=== PATIENT | female | born 1955 | race Caucasian/White ===

== ENCOUNTER 2018-01-09 11:21 | Inpatient (IN) | payer OTHER ==
[~2018-01-09] VITALS: Ht 160 cm; Wt 62.4 kg
--- NOTE | ~2018-01-09 | EKG ---
[address] [place] [address] ELECTROCARDIOGRAM REPORT Name: RICARDO BERNALSWATI EWING Room #: 406-P ADM IN M.R.#: [id number] Admission: 01/09/18 Attend Phys: Malcolm Watts MD Discharge: Date of : 53 Report #: [id number] THIS REPORT FOR: //name// [facility] Test Date: 2018-01-10 Test Time: 11:02:58 Pat Name: SWATI BERNAL Department: Room: 406 P Gender: F Coremaking Supervisor: Ruslan RODRÍGUEZ : 1955 Requested By: Malcolm Watts Order Number: [id number] MD: Yovani Mandujano Measurements Intervals [place] Rate: 114 P: 52 MN: 140 QRS: -13 QRSD: 91 T: 41 QT: 337 QTc: 465 Interpretive Statements Sinus tachycardia Borderline low voltage, extremity leads Baseline wander in lead(s) V4 Compared to ECG 01/09/2018 12:18:58 Poor R-wave progression no longer present Electronically Signed On 01-10-2018 14:04:06 CDT by Yovani Mandujano [email or web address] <ELECTRONICALLY SIGNED> By: Yovani Mandujano MD 01/10/18 1404 1102 1102 Yovani Mandujano MD /EPI
--- NOTE | ~2018-01-09 | 2DMMODE ---
[facility] [address] [place] [address] 2 D/M-MODE ECHOCARDIOGRAM Name: SWATI ALLAN KAYLIN Room #: 406-P ADM IN M.R.#: [id number] Admission: 01/09/18 Attend Phys: Malcolm Watts MD Discharge: Date of : 53 Date of Service: 01/10/18 1206 Report #: [id number] THIS REPORT FOR: //name// APPROVED REPORT Study performed: 01/10/2018 11:06:10 EXAM: Comprehensive 2D, Doppler, and color-flow Echocardiogram Patient Location: Bedside Room #: 406 Status: routine BSA: 1.39 HR: 110 bpm BP: 126/58 mmHg Rhythm: Tachycardia Other Information Study Quality: Good Indications Tachycardia. Short of breath. renal failure. Hx: HTN, tob 2D Dimensions RVDd: 28.55 mm LVEF(%): 51.56 (>50%) IVSd: 9.65 (7-11mm) LVDd: 41.51 mm PWd: 9.18 (7-11mm) LVDs: 30.70 (25-40mm) Aortic Root: 33.27 mm Myrick's LVEF: 51.56 % Volumes Left Atrial Volume (Systole) Single Plane 4CH: 21.69 mL Single Plane 2CH: 21.13 mL LA ESV Index: 17.00 mL/m2 Aortic Valve AoV Peak Juma.: 1.26 m/s AO Peak Gr.: 6.35 mmHg LVOT Max P.27 mmHg LVOT Max V: 1.15 m/s Mitral Valve E/A Ratio: 0.6 MV Decel. Time: 146.56 ms MV E Max Juma.: 0.79 m/s [facility] [address] [place] [address] 2 D/M-MODE ECHOCARDIOGRAM Name: LACEYGAETANO BERNALSWATI EWING Room #: 406-[facility] IN ..#: [id number] Admission: 01/09/18 Attend Phys: Malcolm Watts MD Discharge: Date of : 53 Date of Service: 01/10/18 1206 Report #: [id number] MV A Juma.: 1.26 m/s MV PHT: 42.50 ms IVRT: 76.12 ms Pulmonary Valve PV Peak Juma.: 1.04 m/s PV Peak Gr.: 4.31 mmHg Tricuspid Valve TR Peak Juma.: 2.38 m/s RAP Estimate: 5.00 mmHg TR Peak Gr.: 22.60 mmHg PA Pressure: 28.00 mmHg Left Ventricle The left ventricle is normal size. There is normal left ventricular wall thickness. Left ventricular systolic function is normal. LVEF is 55%. Mild diastolic dysfunction is present (impaired relaxation pattern). Right Ventricle The right ventricle is normal size. The right ventricular systolic function is normal. Atria The left atrium size is normal. The right atrium size is normal. Aortic Valve Aortic valve is mildly calcified. No aortic regurgitation is present. There is no aortic valvular stenosis. Mitral Valve Mitral valve leaflets are mildly calcified. Mild mitral regurgitation. No evidence of mitral valve stenosis. Tricuspid Valve The tricuspid valve is normal in structure. Trace tricuspid regurgitation. Estimated PAP is 25-30mmHg. Pulmonic Valve Pulmonic valve is not well visualized. Great Vessels The aortic root is normal in size. IVC is normal in size and collapses >50% with inspiration. Pericardium [facility] [address] [place] [address] 2 D/M-MODE ECHOCARDIOGRAM Name: RICARDO BERNALSWATI EWING Room #: 406-[facility] IN M.R.#: [id number] Admission: 01/09/18 Attend Phys: Malcolm Watts MD Discharge: Date of : 53 Date of Service: 01/10/18 1206 Report #: [id number] There is no pericardial effusion. <Conclusion> The left ventricle is normal size. LVEF is 55%. Aortic valve is mildly calcified. Mitral valve leaflets are mildly calcified. Mild mitral regurgitation. The tricuspid valve is normal in structure. Trace tricuspid regurgitation. Estimated PAP is 25-30mmHg. Pulmonic valve is not well visualized. There is no pericardial effusion. <ELECTRONICALLY SIGNED> By: Azar Mireles MD 01/10/18 1206 1206 Azar Mireles MD /INF
--- NOTE | ~2018-01-09 | EKG ---
[address] [place] [address] ELECTROCARDIOGRAM REPORT Name: RICARDO BERNALSWATI EWING Room #: 406-P ADM IN M.R.#: [id number] Admission: 01/09/18 Attend Phys: Malcolm Watts MD Discharge: Date of : 53 Report #: [id number] THIS REPORT FOR: //name// [facility] ED Test Date: 2018-01-09 Test Time: 12:18:58 Pat Name: SWATI BERNAL Department: Room: 406 Gender: F Clinical Admissions Manager: lissa : 1955 Requested By: [place] Order Number: [id number] MD: Adán Villatoro Measurements Intervals [place] Rate: 109 P: 64 DE: 157 QRS: 16 QRSD: 94 T: 60 QT: 351 QTc: 473 Interpretive Statements Sinus tachycardia Probable left atrial enlargement Poor R wave progression No previous ECG available for comparison Electronically Signed On 01-10-2018 8:19:31 CDT by Adán Villatoro [email or web address] <ELECTRONICALLY SIGNED> By: Adán Villatoro MD, [facility] 01/10/18 0819 1218 17 Adán Villatoro MD, FACC /EPI
--- NOTE | ~2018-01-09 | HC ---
[facility] [place] [address] CONSULTATION Name: LACEYGAETANO BERNALSWATI Room #: 241-P ADM IN M.R.#: [id number] Admission: 01/09/18 Attend Phys: Malcolm Watts MD Discharge: Date of : 53 Report #: [id number] THIS REPORT FOR: //name// CC: Nkechi Watts DATE OF SERVICE: 01/14/2018 REFERRING PROVIDER: Carlo Myrick MD REASON FOR CONSULTATION: Severe sepsis and abdominal pain. HISTORY OF PRESENT ILLNESS: The patient is a 62-year-old female who presented 5 days ago with complaints of malaise, diminished appetite and significant mucositis of the oropharynx and digestive tract. The patient was on methotrexate for rheumatoid arthritis and over the past 48 hours has decompensated with severe hypotension and lactic acidosis. The patient has had pancytopenia since admission felt secondary to methotrexate and earlier today was complaining of significant right-sided abdominal pain. The patient was emergently intubated due to respiratory failure and severe sepsis and workup was continued in the form of a CT scan of the chest, abdomen and pelvis today. Over the past few days, her workup in the form of a V/Q scan as well as a CT scan of the abdomen and pelvis were obtained and reviewed and this showed mismatch defect as well as mildly distended gallbladder with no other pathology. Urine cultures have grown Klebsiella and E. coli. As the patient has worsening lactic acidosis with pancytopenia and abdominal pain with severe sepsis, I am asked to evaluate for possible abdominal source. PAST MEDICAL HISTORY: Rheumatoid arthritis, on methotrexate; history of fibromyalgia and restless leg syndrome as well as hypertension. OUTPATIENT MEDICATIONS: Include Cymbalta, Mobic, hydrocodone, Flexeril, Xanax, Valtrex, temazepam, Maxzide, methotrexate, Topamax and albuterol. ALLERGIES: No known drug allergies. FAMILY HISTORY: Reviewed and noncontributory. SOCIAL HISTORY: The patient does not utilize alcohol or illicit drugs. She had been smoking tobacco up until admission. REVIEW OF SYSTEMS: Unobtainable secondary to the patient's intubated and obtunded status. PHYSICAL EXAMINATION: VITAL SIGNS: Temperature 96.2, pulse 137, respirations 37, blood pressure 81/[address] [address] CONSULTATION Name: SWATI ALLAN Room #: 241-P [facility] IN ..#: [id number] Admission: 01/09/18 Attend Phys: Malcolm Watts MD Discharge: Date of : 53 Report #: [id number] on Levophed. GENERAL: Chronically ill-appearing, debilitated elderly woman who is intubated and sedated. HEENT: Normocephalic, atraumatic. She is edentulous with pale sclerae and has a severely dry oropharynx with multiple ulcerated areas. NECK: Supple, without lymphadenopathy. HEART: Tachycardic, but regular rhythm. LUNGS: Coarse breath sounds bilaterally with decreased air entry at the bases. ABDOMEN: Soft and nondistended. I cannot elicit any sign or symptom of tenderness as her belly has no rigidity, no rebound, no guarding seen at this time. GENITOURINARY: Normal external female genitalia with Ibrahim catheter in place. EXTREMITIES: No edema. Her fingers and toes are becoming cyanotic. NEUROLOGIC: She is intubated and sedated, although she does grimace to pain when stimulated. PSYCHIATRIC: Unobtainable secondary to intubated and sedated status. SKIN AND INTEGUMENT: Numerous abrasions and ulcerations all over her arms and legs. LABORATORY AND X-RAY DATA: CBC shows white blood cell count of 0.2 thousand, hemoglobin 8.0, platelets 8. Creatinine is 1.4. Total bilirubin normal at 0.8. Transaminases are elevated. Albumin is critically low at 1.3. Procalcitonin is elevated at 4.69. Urine culture is positive for E. coli and Klebsiella. Blood gas shows a lactate of 10.23. CT scan of the chest, abdomen and pelvis just obtained shows distention of the gallbladder without gallbladder wall thickening or cholecystitis changes. Her cecum shows mild pericolonic soft tissue stranding and thickening consistent with possible colitis and certainly typhlitis would not be out of question in this patient. She does have marked consolidated bilateral lower lobe infiltrates. ASSESSMENT AND PLAN: This is a 62-year-old critically ill female who appears to have severe bilateral lower lobe pneumonias as well as urosepsis and even possibly typhlitis at this time. The patient is currently intubated and sedated on sepsis protocol, receiving acyclovir, micafungin, Zosyn and vancomycin as well as requiring increasing pressor support. The patient has a worsening lactic acidosis in light of maximal supportive therapy and has had the onset of progressive cyanosis to her digits of the upper and lower extremities. She did not have any evidence of perforation or necrotic bowel at this time, as her abdomen is soft, although I do think she likely has a component of neutropenic colitis of the cecum. At this point, the patient's condition is grave and likelihood of survival is quite low. I did spend greater than 60 minutes in evaluation of this patient, gathering her history, performing a thorough physical exam as well as reviewing all of her workup thus far and spent considerable time discussing with the patient's family in the waiting room today. At this point, they would like to consider ongoing [facility] [address] [place] [address] CONSULTATION Name: SWATI ALLAN Room #: 241-P ADM IN M.R.#: [id number] Admission: 01/09/18 Attend Phys: Malcolm Watts MD Discharge: Date of : 53 Report #: [id number] maximal medical therapy and as such, I will defer that to the critical care service. I see no indication for emergent surgical intervention at this time that would alter the outcome of her overall course. However, I will follow along and leave any further recommendations in the patient's chart as appropriate. As always, I sincerely appreciate this consult. <ELECTRONICALLY SIGNED> By: Benji Vazquez MD, FACS 01/15/18 0854 12 2155 Benji Vazquez MD, FACS /nt
--- NOTE | ~2018-01-09 | P ---
[facility] [place] [address] PROCEDURE REPORT Name: RICARDO BERNALSWATI Room #: 241-P [facility] IN M.R.#: [id number] Admission: 01/09/18 Attend Phys: Malcolm Watts MD Discharge: Date of : 53 Report #: [id number] THIS REPORT FOR: //name// CC: Nkechi Watts DATE OF SERVICE: 01/14/2018 PROCEDURE: Emergent intubation. INDICATION: Severe sepsis and respiratory failure. PROCEDURE NOTATION: The patient was placed in the supine position after respiratory therapy and nursing were prepared. The patient was placed in a sniff position, but not overly hyperextended due to underlying history of rheumatoid arthritis. The patient received 20 mg of etomidate for sedation and muscle relaxation. The patient was adequately relaxed. Using a Юлия 4 blade, a grade 1 view of the vocal cords was noted. There was significant mucositis in the oropharynx, but no significant bleeding. A 7.5 endotracheal tube was easily advanced through the vocal cords and directly visualized doing so to 20 cm at the gums. Positive Easy Cap color change and bilateral breath sounds were noted. The patient was bagged throughout the procedure until intubation and then post-intubation and then was placed on mechanical ventilatory support. Endotracheal tube was secured in position. The patient tolerated well with no noted difficulties and no hypoxemia. By: 1205 1236 Carlo Myrick MD /nt
--- NOTE | ~2018-01-09 | EKG ---
[address] [place] [address] ELECTROCARDIOGRAM REPORT Name: RICARDO BERNALSWATI EWING Room #: 241-P ADM IN M.R.#: [id number] Admission: 01/09/18 Attend Phys: Malcolm Watts MD Discharge: Date of : 53 Report #: [id number] THIS REPORT FOR: //name// [facility] Test Date: 2018-01-12 Test Time: 11:53:37 Pat Name: SWATI BERNAL Department: Room: 241 P Gender: F Garment Cutter: AYE : 1955 Requested By: Yovani Mandujano Order Number: [id number] MD: Yovani Mandujano Measurements Intervals [place] Rate: 123 P: 57 GA: 141 QRS: -1 QRSD: 90 T: 60 QT: 311 QTc: 445 Interpretive Statements Sinus tachycardia Probable left atrial enlargement Low voltage, precordial leads Electronically Signed On 01-12-2018 19:57:49 CDT by Yovani Mandujano [email or web address] <ELECTRONICALLY SIGNED> By: Yovani Mandujano MD 01/12/181956 1153 1153 Yovani Mandujano MD /LILIANE
--- NOTE | ~2018-01-09 | HC ---
[facility] [place] [address] CONSULTATION Name: RICARDO BERNALSWATI Room #: 241-P ADM IN M.R.#: [id number] Admission: 01/09/18 Attend Phys: Malcolm Watts MD Discharge: Date of : 53 Report #: [id number] THIS REPORT FOR: //name// CC: Nkechi Watts TYPE OF REPORT: Infectious diseases consultation. REASON FOR CONSULTATION: I was asked to evaluate concerning neutropenia, mucositis, urinary retention and failure to thrive. HISTORY OF PRESENT ILLNESS: The patient was a 62-year old with rheumatoid arthritis, has been on immunosuppressant for many years. She has been on biologic agents up until the last several years and due to financial issues, she was taken off of this and now is on methotrexate and prednisone. Most recently, has had issues with more shortness of breath along with mucositis with odynophagia. She has tried various topical agents for thrush without benefit. Continues on methotrexate. Had increased her corticosteroids recently. Now is off of her corticosteroids. She states she has lost about 40 pounds in the last several weeks. No fever, chills or sweats. No cough or sputum production. Has generalized weakness, myalgias and arthralgias. No nausea, vomiting or diarrhea. No dysuria, although she has had some difficulties urinating. Denies any ulcers to her skin. She has had multiple falls and bruising to her face and extremities. No travel. No tuberculosis exposure. She lives with her family who has otherwise been well. No HIV risks. PAST MEDICAL HISTORY: Rheumatoid arthritis, fibromyalgia, COPD, restless leg syndrome and hypertension. FAMILY HISTORY: Noncontributory. SOCIAL HISTORY: She is a smoker of cigarettes, minimal alcohol intake. REVIEW OF SYSTEMS: No cardiac issues. No other neurologic issues. ALLERGIES: None. MEDICATIONS: Prednisone, Cymbalta, Mobic, [place], Flexeril, Xanax, Valtrex, Estrace, Restoril, Maxzide, methotrexate, Topamax and ProAir. PHYSICAL EXAMINATION: VITAL SIGNS: Afebrile and hemodynamically stable. GENERAL: Alert and cooperative. Multiple bruises to her face, thorax and extremities. Several areas of ecchymosis from thin skin. HEENT: Remarkable for mucositis involving the soft palate. Edentulous. NECK: Supple. LUNGS: Clear. [facility] [address] [place] [address] CONSULTATION Name: SWATI ALLAN Room #: 241-P [facility] IN .R.#: [id number] Admission: 01/09/18 Attend Phys: Malcolm Watts MD Discharge: Date of : 53 Report #: [id number] HEART: Regular, without murmur. ABDOMEN: Soft and nontender. No hepatosplenomegaly or mass. She had alopecia involving her pubic hair. MUSCULOSKELETAL: Joints without definite synovitis. NEUROLOGICAL: Some weakness in her lower extremities bilaterally. LABORATORY STUDIES: Sodium 138, potassium 3.4, bicarbonate 22 and creatinine initially 4 and now 2.6. Liver function test normal. Lactate 0.6. Hemoglobin 9.3; platelet count 148,000 and white count 0.7 with 6% neutrophils, 62% lymphs and 30% eosinophils. Urinalysis was unremarkable. Blood cultures are negative to date. RADIOLOGICAL DATA: Chest x-ray, left lower lobe atelectasis. CT scan of the chest and abdomen and pelvis showed COPD with bull eye, no acute change, distended gallbladder and distended bladder. IMPRESSION: A 62-year old with rheumatoid arthritis, on immunosuppression including prednisone and methotrexate, presents now with odynophagia with mucositis, weight loss, acute renal failure, eosinophilia and anemia. No thrombocytopenia. No splenomegaly. No evidence of Felty's syndrome. I am suspecting that most of her issues are related to her methotrexate and prednisone. Likely cause of her anemia and neutropenia. Acute renal failure yet unclear because of prerenal or post-renal disease, noting that she had urinary retention. I am suspecting her weight loss is more related to her mucositis and poor nutritional intake. No evidence on imaging studies for lymphoma. PLAN: We would recommend obtaining culture for HSV PCR involving the mouth. Continue treatment with Valtrex and fluconazole. Hold methotrexate and give stress dose of prednisone. If no improvement, we would perform upper endoscopy to further assess her esophagus. There was no evidence of esophageal thickening on her CAT scan. We will obtain urine culture and blood cultures. With neutropenia, she may not have much reaction in the urine sediment. However, no bacteria were seen on Gram stain. Continue with nutritional support. Serial CBCs. May need neutrophil growth factor if she does not improve here in the next day or so. EGD if odynophagia does not improve. Await culture results. Continue with Valtrex and fluconazole. <ELECTRONICALLY SIGNED> By: Nic Pittman MD 01/13/18 0828 [id number] Nic Pittman MD /nt
--- NOTE | ~2018-01-09 | S ---
[facility] [place] [address] SURGICAL PATH RPT PROCEDURE Name: SWATI ALLAN Room #: 241-P ADM IN M.R.#: [id number] Admission: 01/09/18 Date of : 53 Discharge: Report #: [id number] Path Case #: [id number] PATHOLOGY REPORT COLLECTION DATE: 01/11/2018 RECEIVED DATE: 01/13/2018 SUBMITTING PHYS: Malcolm Watts M.D. OTHER PHYS: Dr. Nkechi Lynch SPECIMEN(S) RECEIVED: A.Peripheral smear * * * * * * * * * * * * FINAL DIAGNOSIS: Peripheral blood smear: - Pancytopenia including mgbrslav-fz-opvncb macrocytic anemia, severe leukopenia and mild thrombocytopenia. (see comment). COMMENT: Overall the peripheral blood has pancytopenia including mlgojxlw-hs-iaqrxe macrocytic anemia, severe leukopenia and mild thrombocytopenia. The etiology of the findings is unclear based entirely on slide review. Potential causes of pancytopenia include infections, drug reactions and primary bone marrow disorders. Correlation with clinical history and additional laboratory data, to include the bone marrow biopsy ([id number]), is required. (CLW:sofie; 01/13/2018) PATHOLOGIST: Shannon Suggs M.D. REPORT ELECTRONICALLY SIGNED BY: Shannon Suggs M.D. DATE/TIME: 01/13/2018 18:26 * * * * * * * * * * * * MICROSCOPIC DESCRIPTION: CBC Data (01/11/18): WBC 400 /uL, RBC 2.23, hemoglobin 8.3 g/dL, hematocrit 24.2%, MCV 108.7 fL, MCH 37.5 pg, MCHC 34.5 g/dL, RDW 20.2%. Platelet count 117,000 /dL. Manual white blood cell differential: segs 2%, lymphs 86%, eos 12%. Peripheral Blood Smear: Cytomorphological examination of the Amaya's stained peripheral blood smear confirms the provided data. Red blood cells show gbocxmhe-hl-kgjtqn macrocytic anemia with yvzb-hc-xcqdihfz anisocytosis. While a rare dacryocyte (pointed RBC, teardrop cell) is noted, there is no significant poikilocytosis present. White blood cells are markedly decreased in number. They are predominantly lymphocytes that are small, round and mature-appearing with condensed chromatin and scant cytoplasm with admixed large granular [address] [address] SURGICAL PATH RPT PROCEDURE Name: SWATI ALLAN Room #: 241-P ADM IN [facility].#: [id number] Admission: 01/09/18 Date of : 53 Discharge: Report #: [id number] Path Case #: [id number] lymphocytes. Rare granulocytes are predominantly neutrophils and eosinophils. Platelets are mildly decreased in number and mainly normal in morphology with rare larger platelets noted. GROSS PATHOLOGY: Received are four peripheral blood smears (two Amaya stained and two unstained), labeled, Swati Allan. CLINICAL HISTORY: A 62-year-old woman with pancytopenia. Morphologic review of the peripheral blood smear is requested by the patient's physician. INITIAL CPT CODE(S): A; [place] Professional services performed by [facility] at [facility] [address], [place] [address] Technical services performed by [facility] at [address] [place] [address], [address], [place] [address]. [facility] [address] [place] [address] PHONE: [phone] DIRECTOR: Mejia Farah M.D. * * * END OF REPORT * * *
--- NOTE | ~2018-01-09 | HC ---
[facility] [place] [address] CONSULTATION Name: RICARDO BERNALSWATI Room #: 406-P ADM IN M.R.#: [id number] Admission: 01/09/18 Attend Phys: Malcolm Watts MD Discharge: Date of : 53 Report #: [id number] THIS REPORT FOR: //name// CC: Nkechi Watts DATE OF SERVICE: 01/10/2018 ATTENDING PHYSICIAN: Dr. Watts. REASON FOR CONSULTATION: Acute kidney injury. HISTORY OF PRESENT ILLNESS: A 62-year-old patient has longstanding rheumatoid arthritis and fibromyalgia on multiple medications including meloxicam and Maxzide, developed shortness of breath and doubled her standard 10 mg a day prednisone. She developed a very severe Adrienne mouth and esophageal infection, which led to extremely poor p.o. intake and she after a couple of weeks on 20 mg a day of prednisone instead of her usual dose of 10, stopped the prednisone altogether and this progressed to more weakness, low blood pressures and eventually admission to the hospital with a creatinine level that was up to 4. We do not have a baseline creatinine, but she says that she did not know of any prior kidney issues. Now after overnight IV fluids, she is down to 2.6. PAST MEDICAL HISTORY: She has this diagnosis of rheumatoid arthritis with generalized arthralgia, stiffness, pain; however, completely nondeforming. She has COPD. She is a heavy smoker, also carries a diagnosis of restless legs. HOME MEDICATIONS: Include Cymbalta 60 mg a day, normally prednisone 10 mg daily, meloxicam 15 mg daily, hydrocodone, Flexeril, Xanax, Valtrex 500 mg daily, estradiol 2 mg daily, Restoril 30 mg at bedtime p.r.n., Maxzide 1 daily, methotrexate 20 mg weekly, Topamax 50 mg b.i.d., and albuterol inhaler. SOCIAL HISTORY: Heavy smoker, a pack a day or more. FAMILY HISTORY: Noncontributory. REVIEW OF SYSTEMS: GENERAL: She has been feeling poorly. EYES: Sight has been okay. ENT: Tremendous pain with swallowing, sore mouth. ENDOCRINE: No diabetes or thyroid disease. RESPIRATORY: She is easily short winded and that has been worse. CARDIAC: No history of angina, myocardial infarction. GASTROINTESTINAL: She has had the nausea and extremely poor appetite and difficulty swallowing. GENITOURINARY: No dysuria, hematuria or stones. [address] [address] CONSULTATION Name: SWATI ALLAN Room #: 406-P [facility] IN .R.#: [id number] Admission: 01/09/18 Attend Phys: Malcolm Watts MD Discharge: Date of : 53 Report #: [id number] MUSCULOSKELETAL: She does have diffuse myalgias, arthralgias. SKIN: She has had lots of bruising. NEUROLOGIC: Dizziness and weakness. PSYCHIATRIC: She has been depressed. PHYSICAL EXAMINATION: VITAL SIGNS: This is an extremely chronically ill appearing, cachectic woman looking older than her stated age. SKIN: Lots of ecchymoses. SKELETAL: Well-developed, well-nourished completely nondeforming joints. HEENT: Extraocular movements are full. No scleral icterus. Hearing and vision intact. Mucous membranes moist. Tongue, buccal mucosa benign. NECK: Supple. CHEST: Somewhat diminished breath sounds. HEART: Regular but distant. ABDOMEN: Soft and nontender. EXTREMITIES: No edema. LABORATORY DATA: The creatinine was 4, down to 2.6. Potassium is 3.4, BUN is 57, down from 68 and phosphorus is 5.1 with a magnesium of 3.3. ASSESSMENT: Acute kidney injury. Creatinine up, mostly prerenal. She has got volume depletion secondary to diuretic use, poor p.o. intake, difficulty swallowing from her candidal oropharyngeal esophageal infection and then of course all exacerbated by her cold turkeying from 20 mg a day of prednisone to none, which certainly has played a role in this illness. She will need has some modest steroid replacement and IV fluids. She should get back on track without much trouble. Meloxicam and Maxzide need to be held. By: 1251 1827 Oscar Acosta MD /nt
--- NOTE | ~2018-01-09 | EKG ---
[place] [address] [facility] [place] [address] ELECTROCARDIOGRAM REPORT Name: RICARDO BERNALSWATI EWING Room #: 241-P ADM IN M.R.#: [id number] Admission: 01/09/18 Attend Phys: Malcolm Watts MD Discharge: Date of : 53 Report #: [id number] THIS REPORT FOR: //name// [facility] Test Date: 2018-01-14 Test Time: 05:08:32 Pat Name: SWATI BERNAL Department: Room: 241 P Gender: F Box Person: IRIS : 1955 Requested By: Malcolm Watts Order Number: [id number] MD: Adán Villatoro Measurements Intervals [place] Rate: 133 P: 61 PA: 118 QRS: 0 QRSD: 75 T: -86 QT: 299 QTc: 445 Interpretive Statements Sinus tachycardia Occasional atrial premature complexes Low voltage QRS Poor R wave progression Artifact in lead(s) II,III,aVF,V1,V3,V4,V5,V6 No previous ECGs available for comparison Electronically Signed On 01-14-2018 16:38:23 CDT by Adán Villatoro [email or web address] <ELECTRONICALLY SIGNED> By: Adán Villatoro MD, [facility] 01/14/18 [phone] [id number] Adán Villatoro MD, [facility] /EPI
--- NOTE | ~2018-01-09 | HC ---
[facility] [place] [address] CONSULTATION Name: RICARDO BERNALSWATI Room #: 241-P ADM IN M.R.#: [id number] Admission: 01/09/18 Attend Phys: Malcolm Watts MD Discharge: Date of : 53 Report #: [id number] THIS REPORT FOR: //name// CC: Nkechi Watts DATE OF SERVICE: 01/12/2018 REQUESTING PHYSICIAN: Dr. Watts. REASON FOR CONSULTATION: Weight loss and neutropenia. HISTORY OF PRESENT ILLNESS: The patient is a pleasant 62-year-old female with multiple medical problems including rheumatoid arthritis, has been on different medications. She is not sure what type, but she says she was on IV injections before. Currently, it seems she is on methotrexate and low dose prednisone. She was admitted to the hospital with progressively worsening weight loss, loss of appetite and decreased p.o. intake, severe nausea. She was noticed to have neutropenia. Hematology consult is requested. She is evaluated in Intensive Care Unit. The patient has developed fevers while she was in the hospital. She admits having weight loss and decreased appetite. She denies night sweats, denies fevers at home. She does not have cough, shortness of breath. She has developed severe diarrhea. She is being evaluated for C. difficile colitis now. PAST MEDICAL HISTORY: Significant for rheumatoid arthritis, fibromyalgia, hypertension. According to chart notes, she has not been taking prednisone for weeks, but continues to take methotrexate weekly. SOCIAL HISTORY: Admits she smokes, cannot give me exact smoking history. She does not drink alcohol. FAMILY HISTORY: Noncontributory. REVIEW OF SYSTEMS: GENERAL: Positive for weight loss, fever or chills. HEENT: No hearing loss. CARDIOVASCULAR: No chest pain or palpitation. RESPIRATORY: Negative. GASTROINTESTINAL: See above. GENITOURINARY: No dysuria. MUSCULOSKELETAL: See above. NEUROLOGIC: No headaches. PHYSICAL EXAMINATION: GENERAL: Reveals chronically ill-appearing woman, slightly lethargic, but arousable and giving history and answers appropriately with some delay. [facility] [address] [place] [address] CONSULTATION Name: RICARDO BERNALSWATI JURADOYN Room #: 241-P [facility] IN [facility].#: [id number] Admission: 01/09/18 Attend Phys: Malcolm Watts MD Discharge: Date of : 53 Report #: [id number] VITAL SIGNS: Blood pressure 91/69, heart rate is 136, temperature 102.0, respirations 30. NECK: Supple. HEART: Normal S1, S2. LUNGS: Clear. ABDOMEN: Soft. EXTREMITIES: No edema. SKIN: Reveal some bruising, but no rash. MENTAL STATUS: Awake, oriented, is able to give me limited history. LABORATORY DATA: White count 0.2, on admission was 0.7, hemoglobin 7.7 on admission 10.2, MCV 108.3, platelet count 89, 4% neutrophils 84% lymphocytes, 12% eosinophils. Sodium 140, potassium 2.8, BUN 30, creatinine 1.2, total protein 6.4, albumin 2.1. CT of abdomen and pelvis, no evidence of pneumonia or pneumothorax, emphysema, gallbladder enlarged. No lymphadenopathy. ASSESSMENT AND PLAN: 1. Pancytopenia. The patient has rheumatoid arthritis, has been on methotrexate. She probably has underlying pancytopenia secondary to methotrexate. Since admission, pancytopenia is getting worse. I am planning to order bone marrow biopsy with flow cytometry and plan to check IgG, IgA and IgM level. Recommend abdominal ultrasound. The patient is clearly septic now. Differential diagnosis includes myeloproliferative disorder such as lymphoproliferative disorder or even acute leukemia. I will ask pathologist to review peripheral smear, although there is no mention of immature cells on peripheral smear. Regardless, it seems the patient is septic right now. I am planning to order Neupogen 300 mcg subQ daily. Bone marrow biopsy will be done emergently tomorrow. If she has any contraindication, Neupogen will be discontinued. Most likely, she has hypoimmunoglobulinemia, low IgG. She will probably benefit from IVIG. I will await results of IgG level. 2. Diarrhea, consider covering for C. diff. 3. Sepsis. ID on service. Agree with antibiotics and antifungals. I would consider antivirals as well. Thank you very much for allowing me to participate in care of this patient. We will follow the patient with you. By: 1033 1950 Gonzalo Moreno MD /nt
--- NOTE | ~2018-01-09 | S ---
[facility] [place] [address] SURGICAL PATH RPT PROCEDURE Name: SWATI ALLAN Room #: 241-P ADM IN M.R.#: [id number] Admission: 01/09/18 Date of : 53 Discharge: Report #: [id number] Path Case #: [id number] PATHOLOGY REPORT COLLECTION DATE: 01/13/2018 RECEIVED DATE: 01/13/2018 SUBMITTING PHYS: Dr. Oscar Acotsa OTHER PHYS: Sanjay Farrell Dr., Dr. SPECIMEN(S) RECEIVED: A.Bone marrow, biopsy B.Bone marrow, clot and/or particle prep C.Bone marrow, aspirate smears D.Peripheral smear * * * * * * * * * * * * FINAL DIAGNOSIS: Bone marrow aspirate, biopsy, cell clot and peripheral blood: - Peripheral blood with marked pancytopenia including severe macrocytic anemia, markedly severe leukopenia and severe thrombocytopenia. - Markedly hypocellular bone marrow (less than 5%) with no morphologic evidence of lymphoma or acute leukemia (see comment). COMMENT: Overall, the bone marrow is markedly hypocellular for the patient's age (less than 5%) with no morphologic evidence of lymphoma or acute leukemia. The histologic differential diagnosis includes aplastic anemia, hypoplastic myelodysplastic syndrome and hypoplastic acute myeloid leukemia. There are no increased immature cells to suggest acute myeloid leukemia by morphology or flow cytometry. Erythroid and myeloid maturation is markedly reduced; therefore evaluation for dysplastic changes is difficult. No marked dyspoietic changes are identified in the current sample. Medication induced bone marrow failure is also a diagnostic consideration. Correlation with clinical history, additional laboratory data and cytogenetics is required. (CLW:deon; 01/15/2018) PATHOLOGIST: Shannon Suggs M.D. REPORT ELECTRONICALLY SIGNED BY: Shannon Suggs M.D. DATE/TIME: 01/15/2018 15:18 * * * * * * * * * * * * MICROSCOPIC DESCRIPTION: [address] [address] SURGICAL PATH RPT PROCEDURE Name: SWATI ALLAN Room #: 241-P ADM IN ..#: [id number] Admission: 01/09/18 Date of : 53 Discharge: Report #: [id number] Path Case #: [id number] CBC Data (01/13/18): WBC 100 /uL, RBC 1.78, hemoglobin 6.6 g/dL, hematocrit 19.5%, MCV 109.4 fL, MCH 37.1 pg, MCHC 33.9 g/dL, RDW 20.4%, and platelet count 42,000 /uL. Manual white blood cell differential: segs 4%, lymphs 64%, monos 0%, and eos 32%. Peripheral Blood Smear: Cytomorphological examination of the Amaya's stained peripheral blood smear confirms the provided data. Red blood cells show severe macrocytic anemia with moderate anisocytosis. No significant poikilocytosis is identified. No schistocytes or microspherocytes are seen. White blood cells are markedly decreased in number. They are predominantly lymphocytes that are small round and mature appearing with condensed chromatin and scant cytoplasm with admixed large granular lymphocytes. Rare granulocytes are predominantly segmented neutrophils and eosinophils. No immature cells, blasts or Celsa rods are identified. Platelets are markedly decreased in number and mainly normal in morphology with rare larger platelets noted. Aspirate Smears: Cytomorphological examination of the Amaya's stained aspirate smears show hypocellular spicules present. The overall cellularity is less than 5%. The predominant nucleated cells seen are lymphocytes and plasma cells. The myeloid to erythroid ratio, myeloid maturation and erythroid maturation cannot be accurately evaluated. In a 200 cell differential, there are 2% blasts (no Celsa rods are seen), 18% more differentiated myeloids, 11% erythroid precursors, 61% lymphocytes and 8% plasma cells. Megakaryocytes are inconspicuous. Very rare both normal and abnormal megakaryocytes are noted. No lymphoid aggregates or markedly atypical lymphoid cells are seen. Plasma cells are without atypia. Iron stain of the aspirate smear shows 0/4+ iron positivity. It is scantly cellular with predominantly blood and peripheral blood elements and no intact spicules present. No ringed sideroblasts are identified. Core Biopsy and Cell Clot: The decalcified bone marrow core biopsy is adequate. The bone marrow is markedly hypocellular with an overall cellularity of less than 5%. The myeloid to erythroid ratio, myeloid maturation and erythroid maturation cannot be accurately evaluated. The predominant nucleated cell seen is a lymphocyte, scattered plasma cells and occasional mature granulocytes (predominantly eosinophils). No megakaryocytes are easily identified. No lymphoid aggregates or markedly atypical lymphoid cells are seen. Bony trabeculae and blood vessels are unremarkable. The cell clot is predominantly blood and peripheral blood elements with rare hypocellular spicules present. Iron stain of the cell clot (Blocks B1, B2, B3, B4) show 2/4+ iron positivity with rare hypocellular spicules present. Due to the low cellularity of the flow cytometry specimen, to confirm the flow cytometry findings and to identify cells in a tissue architectural context, properly controlled immunohistochemical stains are performed. [facility] [address] [place] [address] SURGICAL PATH RPT PROCEDURE Name: SWATI ALLAN Room #: 241-P ADM IN M.R.#: [id number] Admission: 01/09/18 Date of : 53 Discharge: Report #: [id number] Path Case #: [id number] Block A1 CD34 - stains rare scattered cells, no increase in blasts CD117 - stains a rare scattered cell, no increase in blasts Myeloperoxidase - stains only rare scattered cells Glycophorin A - stains both nucleated and non-nucleated red blood cells. CD68 - highlights scattered histocytes Flow Cytometry: Flow cytometric immunophenotypic analysis was performed at [facility]. The diagnosis is "absent CD16 expression on myeloid elements identified". There are 65.7% lymphocytes. Of the lymphocytes, there are 83% T-cells with a CD4/CD8 ratio of 0.4 and no aberrant T-cell antigen expression and 14% polyclonal B-cells (kappa lambda ratio of 1.4). Granulocytes are only 24.9% and show lack of detectible CD16 expression. There are 1.1% CD34 positive cells (blasts). No immunophenotypic evidence of a lymphoproliferative disorder, acute leukemia, increase in blasts, or plasma cell neoplasm is identified. Myeloid elements lack CD16 expression. This can occur as a genetic polymorphism, or can be seen in myelodysplastic syndromes or paroxysmal nocturnal hemoglobinuria (PNH). Please see separate flow cytometry report from [facility] ([id number]). Cytogenetics Analysis: Cytogenetic chromosomal analysis is pending at [facility] ([id number]). (CLW:deon; 01/15/2018) GROSS PATHOLOGY: A. Received in formalin labeled "Swati Allan, bone marrow biopsy," is a single needle core of hines bone, measuring 0.8 cm in length and 0.2 cm in diameter. The specimen is submitted entirely in cassette A1, following decalcification. B. Received in formalin labeled "Swati Allan, clot (BM aspirate)," is blood coagulum, measuring 10.0 x 2.4 x 0.5 cm in aggregate dimensions. The specimen is submitted entirely in cassettes B1-B4. (SDY; 01/13/2018) CLINICAL HISTORY: Rule out leukemia 62-year-old woman with pancytopenia. INITIAL CPT CODE(S): A; 79960, 15885, 71757, 76021, 17992, 46256, 91959 B; 12903, 98290, 42669, 06650, 01933 C; 61542, 89567 D; 72773 [facility] [address] [place] [address] SURGICAL PATH RPT PROCEDURE Name: SWATI ALLAN Room #: 241-P ADM IN M.R.#: [id number] Admission: 01/09/18 Date of : 53 Discharge: Report #: [id number] Path Case #: [id number] Professional services performed by [facility] at [facility] [address] [facility], [place] [address] Technical services performed by [facility] at [address] [place] [address]., [address], [place] [address]. [facility] [address] [address] PHONE: [phone] DIRECTOR: Mejia Farah M.D. * * * END OF REPORT * * *
--- NOTE | ~2018-01-09 | EKG ---
[address] [place] [address] ELECTROCARDIOGRAM REPORT Name: RICARDO BERNALSWATI EWING Room #: 241-P ADM IN M.R.#: [id number] Admission: 01/09/18 Attend Phys: Malcolm Watts MD Discharge: Date of : 53 Report #: [id number] THIS REPORT FOR: //name// [facility] Test Date: 2018-01-14 Test Time: 05:06:11 Pat Name: SWATI BERNAL Department: Room: 241 P Gender: F Crotch Piece Baster: IRIS : 1955 Requested By: Denise Kirkpatrick Order Number: [id number] MD: Adán Villatoro Measurements Intervals [place] Rate: 128 P: -2 CA: 130 QRS: 60 QRSD: 82 T: 91 QT: 259 QTc: 378 Interpretive Statements Incomplete electrocardiogram Probable atrial fibrillation Compared to ECG 01/12/2018 11:53:37 Probable atrial fibrillation is present recommend EKG without artifact Electronically Signed On 01-14-2018 8:20:42 CDT by Adán Villatoro [email or web address] <ELECTRONICALLY SIGNED> By: Adán Villatoro MD, [facility] 01/14/18 0820 0506 0506 Adán Villatoro MD, [facility] /EPI
--- NOTE | ~2018-01-09 | HC ---
[facility] [place] [address] CONSULTATION Name: SWATI ALLAN Room #: 241-P ADM IN M.R.#: [id number] Admission: 01/09/18 Attend Phys: Malcolm Watts MD Discharge: Date of : 53 Report #: [id number] THIS REPORT FOR: //name// CC: Nkechi Watts DATE OF SERVICE: 01/14/2018 REFERRING PROVIDER: Cody Tesfaye Dr., Dr. Yovani Mandujano off Dr. Oscar Acosta. REASON FOR CONSULTATION: Severe sepsis and metabolic acidosis. HISTORY OF PRESENT ILLNESS: I was asked to emergently evaluate this patient this morning. The patient is not responsive enough to give any history. History was taken from discussion with sister and mother who were at the bedside, but limited historians as well as with review of the records and discussion with nursing. This is a 62-year-old woman who presented 5 days ago with complaints of malaise, diminished appetite and unable to eat or drink due to significant mucositis of the oropharynx and digestive tract, becoming more ill over the last 48 hours with low blood pressures and overnight elevated lactates. The patient has had pancytopenia since admission, felt secondary to possible methotrexate that has been treating her rheumatoid arthritis. She denies any other past medical history. On my evaluation today, besides her mucositis, complains of significant abdominal pain. Workup thus far since admission has shown cultures growing Klebsiella and E. coli in her urine. Other cultures are negative. Imaging studies have included V/Q scan, which showed a matched defect and a CT abdomen and pelvis on admission showing some distended gallbladder, no other significant pathology. I have already intubated the patient due to her high-minute volume requirements and her severe sepsis and elevated lactate. Currently, she is stable and awaiting additional imaging. Bone marrow biopsy was performed yesterday. ALLERGIES: None known. PAST MEDICAL HISTORY: 1. History of rheumatoid arthritis, on methotrexate. 2. History of fibromyalgia. 3. Restless legs. [facility] [address] [place] [address] CONSULTATION Name: SWATI ALLAN Room #: 241-P [facility] IN ..#: [id number] Admission: 01/09/18 Attend Phys: Malcolm Watts MD Discharge: Date of : 53 Report #: [id number] 4. Hypertension. OUTPATIENT MEDICATIONS: Include prednisone, which she has not taken for about the last 2 weeks according to family, Cymbalta, Mobic, hydrocodone, Flexeril, Xanax, Valtrex esterase, temazepam, Maxzide, methotrexate, Topamax and albuterol. SOCIAL HISTORY: The patient is medically disabled for the past several years. No known significant alcohol consumption. Active smoker up until admission. FAMILY HISTORY: Unobtainable from the patient. REVIEW OF SYSTEMS: Otherwise, obtainable from the patient due to her current status except as described in HPI. PHYSICAL EXAMINATION: VITAL SIGNS: Temperature 35.7, pulse 130s, respiratory rate 40 to 50, blood pressure 84/58, oxygen saturation 100%. GENERAL: This is a debilitated elderly woman, obviously tachypneic. HEENT: Revealed severe dry oropharynx with several ulcerated area, edentulous with pale sclerae. NECK: Supple, no lymphadenopathy noted. LUNGS: Diminished with basilar crackles. CARDIOVASCULAR: Tachycardic, but no murmurs. ABDOMEN: Diffusely tender, more so in the right lower quadrant. EXTREMITIES: No edema. They were cool with no significant cyanosis and 1+ pulses. NEUROLOGIC: The patient is arousable, moves all extremities, but not appropriate with conversation. LABORATORY DATA: White blood cell count is 0.2, hemoglobin 8, hematocrit is 23, platelet count of 8, platelet transfusion noted. Sodium 149, potassium 4.3, chloride 117, bicarbonate 13, BUN 44, creatinine 1.4, glucose 123. AST 294, ALT 151, alkaline phosphatase 31. Albumin 1.3. Arterial blood gas prior to intubation revealed pH of 7.38, pCO2 of 19, pO2 of 95, bicarbonate 11. Lactate 8.86 on a Venturi mask. INR 1.3. IMPRESSION: 1. Severe sepsis, clearly a urinary source, but an abdominal process is of concern as it can be pneumonia. 2. Severe metabolic acidosis with elevated lactate, concerning for catastrophic abdominal event or otherwise significant ischemic event. 3. Pancytopenia, suspect due to methotrexate, bone marrow biopsy pending. 4. History of rheumatoid arthritis. 5. Chronic steroid use. [address] [address] CONSULTATION Name: RICARDO BERNALSWATI EWING Room #: 241-P [facility] IN M.R.#: [id number] Admission: 01/09/18 Attend Phys: Malcolm Watts MD Discharge: Date of : 53 Report #: [id number] SUGGESTIONS: 1. Stress dose steroids. 2. Add sepsis protocol. 3. CT head, chest, abdomen and pelvis with no contrast. 4. Continue with bicarbonate. 5. The patient intubated for ventilatory support due to high-minute volume requirements. Maintain high-minute volume on ventilator and followup arterial blood gas. 6. Await additional cultures. 7. General Surgery consultation. 8. Further recommendations to follow. Discussed with family and nursing as well as respiratory therapy. Total critical care time, not including any procedures to this point has been 60 minutes. By: 1204 1256 Carlo Myrick MD /nt
[2018-01-09 11:35] VITALS: BP 107/86
[2018-01-09 12:06] LABS: HEMATOCRIT 29.9 % (37.0-47.0); HEMOGLOBIN 10.2 gm/dL (12.0-15.0); MCH 37.2 pg (26.0-34.0)
[2018-01-09 12:07] LABS: MCHC 34.1 g/dL (28.0-37.0); MCV 109.1 fL (80.0-100.0); PLATELET COUNT 146 thou/uL (150-400); RBC 2.74 mil/uL (4.20-5.00); RDW 21.1 % (10.5-14.5)
[2018-01-09 12:14] LABS: ANION GAP 13 mmol/L (7-16); BUN 68 mg/dL (7-18); CALCIUM 9.3 mg/dL (8.5-10.1); CHLORIDE 98 mmol/L (98-107); CO2 24 mmol/L (21-32); GLUCOSE 161 mg/dL (74-106); POTASSIUM 3.4 mmol/L (3.5-5.1); SODIUM 135 mmol/L (136-145)
[2018-01-09 12:22] LABS: ALBUMIN 2.7 g/dL (3.4-5.0); DIRECT BILIRUBIN 0.1 mg/dL (<0.1-0.3); SGOT 13 U/L (15-37); SGPT 17 U/L (30-65); TOTAL BILIRUBIN 0.3 mg/dL (<0.1-1.0); TOTAL PROTEIN 6.4 g/dL (6.4-8.2); TROPONIN-I < 0.04 ng/mL (<0.06)
[2018-01-09 12:54] LABS: NUCLEATED RBCS 2 /100WBC
[2018-01-09 12:55] LABS: ANISOCYTOSIS 2+; MACROCYTES 2+; PLATELET ESTIMATE NORMAL
[2018-01-09 13:00] LABS: WBC 0.7 thou/uL (4.0-11.0)
[2018-01-09] MEDS ORDERED: CYMBALTA60 MG PO (14:33)
[2018-01-09] MEDS ORDERED: PREDNISONE 5 MG5 M1 PO (14:34)
[2018-01-09] MEDS ORDERED: NORCO 10-325 T1 EACH PO (14:34)
[2018-01-09] MEDS ORDERED: MOBIC15 MG PO (14:34)
[2018-01-09] MEDS ORDERED: FLEXERIL PO (14:35)
[2018-01-09] MEDS ORDERED: VALTREX 500 MG500 MG PO (14:36)
[2018-01-09] MEDS ORDERED: XANAX 0.5 MG0.5 MG PO (14:36)
[2018-01-09] MEDS ORDERED: RESTORIL30 MG PO (14:37)
[2018-01-09] MEDS ORDERED: MAXZIDE-25 MG1 EACH PO (14:37)
[2018-01-09] MEDS ORDERED: ESTRACE2 M3 PO (14:37)
[2018-01-09] MEDS ORDERED: METHOTREXATE 22.5 MG PO (14:38)
[2018-01-09] MEDS ORDERED: TOPAMAX50 MG PO (14:38)
[2018-01-09] MEDS ORDERED: PROAIR RESPICL90 MCG INH (14:39)
[2018-01-09 14:42] VITALS: BP 107/86
[2018-01-09 16:34] VITALS: BP 102/64
[2018-01-09 16:45] VITALS: BP 119/63
[2018-01-09 20:33] VITALS: BP 95/60
[2018-01-10 04:00] VITALS: BP 94/56
[2018-01-10 05:56] LABS: HEMATOCRIT 26.8 % (37.0-47.0); HEMOGLOBIN 9.3 gm/dL (12.0-15.0); MCH 37.6 pg (26.0-34.0); MCHC 34.6 g/dL (28.0-37.0); MCV 108.7 fL (80.0-100.0); RBC 2.46 mil/uL (4.20-5.00); RDW 20.4 % (10.5-14.5)
[2018-01-10 06:03] LABS: WBC 0.7 thou/uL (4.0-11.0)
[2018-01-10 06:09] LABS: ALBUMIN 2.3 g/dL (3.4-5.0); CALCIUM 8.4 mg/dL (8.5-10.1); PHOSPHORUS 5.1 mg/dL (2.5-4.9); POTASSIUM 3.4 mmol/L (3.5-5.1)
[2018-01-10 06:18] LABS: CREATININE 2.6 mg/dL (0.6-1.0)
[2018-01-10 07:32] VITALS: BP 126/58
[2018-01-10 17:42] LABS: URINE BILIRUBIN NEGATIVE (Negative); URINE BLOOD 2+ (Negative); URINE CLARITY CLEAR; URINE COLOR YELLOW; URINE GLUCOSE-RANDOM* NEGATIVE (Negative); URINE KETONES NEGATIVE (Negative); URINE LEUKOCYTES-REFLEX NEGATIVE (Negative); URINE NITRITE-REFLEX NEGATIVE (Negative); URINE PROTEIN (DIPSTICK) TRACE (Negative); URINE UROBILINOGEN 0.2 E.U./dl (0.2-1.0)
[2018-01-10 17:52] LABS: BACTERIA-REFLEX None Seen /HPF (None Seen); COARSE GRANULAR CASTS 0-3 Few /LPF (None Seen); CRYSTALS None Seen /LPF (None Seen); SQUAMOUS 0-3 Few /LPF (0-3); URINE RBC 3-10 Few /HPF (0-2); URINE WBC-REFLEX 0-5 Rare /HPF (0-5); WBC CASTS 0-3 Few /LPF (None Seen)
[2018-01-10 20:00] VITALS: BP 114/55
[2018-01-11 04:00] VITALS: BP 119/58
[2018-01-11 06:19] LABS: HEMOGLOBIN 8.3 gm/dL (12.0-15.0)
[2018-01-11 06:21] LABS: HEMATOCRIT 24.2 % (37.0-47.0); MCH 37.5 pg (26.0-34.0); MCHC 34.5 g/dL (28.0-37.0); MCV 108.7 fL (80.0-100.0); PLATELET COUNT 117 thou/uL (150-400); RBC 2.23 mil/uL (4.20-5.00); RDW 20.2 % (10.5-14.5)
[2018-01-11 06:31] LABS: WBC 0.4 thou/uL (4.0-11.0)
[2018-01-11 06:32] LABS: ALBUMIN 2.1 g/dL (3.4-5.0); CALCIUM 7.5 mg/dL (8.5-10.1); PHOSPHORUS 2.5 mg/dL (2.5-4.9); POTASSIUM 3.5 mmol/L (3.5-5.1)
[2018-01-11 06:34] LABS: CREATININE 1.4 mg/dL (0.6-1.0)
[2018-01-11 07:50] VITALS: BP 115/48
[2018-01-11 09:58] LABS: MAGNESIUM 2.4 mg/dL (1.8-2.4)
[2018-01-11 10:40] LABS: ANISOCYTOSIS 2+; MACROCYTES 2+
[2018-01-11 12:58] VITALS: BP 114/65
[2018-01-11 19:17] VITALS: BP 96/45
[2018-01-12] VITALS (38 sets, daily range): BP systolic 58–112; BP diastolic 42–70
[2018-01-12 05:20] LABS: HEMATOCRIT 22.1 % (37.0-47.0); HEMOGLOBIN 7.7 gm/dL (12.0-15.0); MCHC 35.1 g/dL (28.0-37.0); MCV 108.3 fL (80.0-100.0); RBC 2.04 mil/uL (4.20-5.00); RDW 19.9 % (10.5-14.5)
[2018-01-12 05:22] LABS: WBC 0.2 thou/uL (4.0-11.0)
[2018-01-12 05:31] LABS: CALCIUM 7.9 mg/dL (8.5-10.1); CREATININE 1.2 mg/dL (0.6-1.0)
[2018-01-12 05:34] LABS: POTASSIUM 2.8 mmol/L (3.5-5.1)
[2018-01-12 09:53] LABS: ANISOCYTOSIS 2+; MACROCYTES 2+; PLATELET COUNT 89 thou/uL (150-400)
[2018-01-12 12:33] LABS: URINE BILIRUBIN NEGATIVE (Negative); URINE BLOOD 3+ (Negative); URINE CLARITY CLEAR; URINE COLOR YELLOW; URINE GLUCOSE-RANDOM* NEGATIVE (Negative); URINE KETONES TRACE (Negative); URINE LEUKOCYTES NEGATIVE (Negative); URINE NITRITE NEGATIVE (Negative); URINE PROTEIN (DIPSTICK) 1+ (Negative); URINE SPECIFIC GRAVITY 1.025 (1.005-1.035); URINE UROBILINOGEN 0.2 E.U./dl (0.2-1.0)
[2018-01-12 12:40] LABS: CASTS None Seen /LPF (None Seen); HYALINE CASTS 0-3 Few /LPF (None Seen); MUCUS 0-3 Light strn/LPF (None Seen); SQUAMOUS None Seen /LPF (0-3); URINE WBC 0-5 Rare /HPF (0-5)
[2018-01-12 12:41] LABS: BACTERIA 1-9 Few /HPF (None Seen); URINE RBC 0-2 Rare /HPF (0-2)
[2018-01-12 13:09] LABS: CRYSTALS None Seen /LPF (None Seen)
[2018-01-12 13:37] LABS: FOLIC ACID 1.2 ng/mL (8.6-58.9)
[2018-01-12 23:07] LABS: IgA 129 mg/dL (87-352); IgG 339 mg/dL (700-1600); IgM 52 mg/dL (26-217)
[2018-01-13] VITALS (52 sets, daily range): BP systolic 89–128; BP diastolic 37–98
[2018-01-13 05:39] LABS: HEMOGLOBIN 6.6 gm/dL (12.0-15.0); MCH 37.1 pg (26.0-34.0); MCHC 33.9 g/dL (28.0-37.0); MCV 109.4 fL (80.0-100.0); RBC 1.78 mil/uL (4.20-5.00); RDW 20.4 % (10.5-14.5)
[2018-01-13 05:42] LABS: HEMATOCRIT 19.5 % (37.0-47.0); WBC 0.1 thou/uL (4.0-11.0)
[2018-01-13 05:43] LABS: ALBUMIN 1.5 g/dL (3.4-5.0); CALCIUM 7.4 mg/dL (8.5-10.1); CREATININE 1.2 mg/dL (0.6-1.0); MAGNESIUM 1.8 mg/dL (1.8-2.4); PHOSPHORUS 1.6 mg/dL (2.5-4.9); POTASSIUM 3.3 mmol/L (3.5-5.1); TOTAL BILIRUBIN 0.4 mg/dL (<0.1-1.0); TOTAL PROTEIN 5.1 g/dL (6.4-8.2)
[2018-01-13 08:51] LABS: ANISOCYTOSIS 2+; LARGE PLATELETS FEW; MACROCYTES 2+; PLATELET COUNT 42 thou/uL (150-400); PLATELET ESTIMATE DECREASED
[2018-01-13 09:55] LABS: HSV PCR SOURCE MOUTH
[2018-01-13 10:44] LABS: INR 1.1; PROTIME 11.4 Seconds (9.3-11.4)
[2018-01-13 19:12] LABS: HSV 1 DNA Negative (Negative); HSV 2 DNA Negative (Negative)
[2018-01-14] VITALS (145 sets, daily range): BP systolic 62–143; BP diastolic 18–103
[2018-01-14 02:26] LABS: BE(vivo) -11.4 mmol/L (-2 to +3); HCO3 11.6 mmol/L (22.0-26.0); PCO2 18.9 mmHg (35.0-45.0); PO2 89.2 mmHg (80.0-100.0); pH 7.405 (7.360-7.450); sO2 97.1 % (92.0-98.0)
[2018-01-14 04:55] LABS: HEMATOCRIT 24.1 % (37.0-47.0); HEMOGLOBIN 8.2 gm/dL (12.0-15.0); MCHC 34.2 g/dL (28.0-37.0); RBC 2.35 mil/uL (4.20-5.00); RDW 25.3 % (10.5-14.5)
[2018-01-14 04:59] LABS: MCV 102.5 fL (80.0-100.0)
[2018-01-14 05:02] LABS: ALBUMIN 1.4 g/dL (3.4-5.0); CALCIUM 7.4 mg/dL (8.5-10.1); CREATININE 1.2 mg/dL (0.6-1.0); MAGNESIUM 1.9 mg/dL (1.8-2.4); PHOSPHORUS 3.7 mg/dL (2.5-4.9); POTASSIUM 4.1 mmol/L (3.5-5.1)
[2018-01-14 06:34] LABS: PLATELET COUNT 15 thou/uL (150-400); WBC 0.2 thou/uL (4.0-11.0)
[2018-01-14 06:58] LABS: ANISOCYTOSIS 3+; NUCLEATED RBCS 2 /100WBC; PLATELET ESTIMATE MARKEDLY DECREASED
[2018-01-14 06:59] LABS: BURR CELLS 2+; SCHISTOCYTES OCCASIONAL
[2018-01-14 10:24] LABS: HEMATOCRIT 23.4 % (37.0-47.0); MCH 35.2 pg (26.0-34.0); MCHC 34.1 g/dL (28.0-37.0); MCV 103.2 fL (80.0-100.0); RBC 2.27 mil/uL (4.20-5.00); RDW 26.1 % (10.5-14.5)
[2018-01-14 10:30] LABS: BE(vivo) -12.4 mmol/L (-2 to +3); HCO3 11.1 mmol/L (22.0-26.0); PO2 95.1 mmHg (80.0-100.0); pH 7.381 (7.360-7.450); sO2 97.4 % (92.0-98.0)
[2018-01-14 10:32] LABS: PCO2 19.2 mmHg (35.0-45.0)
[2018-01-14 10:33] LABS: CALCIUM 7.4 mg/dL (8.5-10.1); CREATININE 1.4 mg/dL (0.6-1.0); FIBRINOGEN 519.6 mg/dL (210-360); INR 1.3; POTASSIUM 4.3 mmol/L (3.5-5.1); PROTIME 13.6 Seconds (9.3-11.4)
[2018-01-14 10:39] LABS: ALBUMIN 1.3 g/dL (3.4-5.0); TOTAL BILIRUBIN 0.8 mg/dL (<0.1-1.0); TOTAL PROTEIN 4.8 g/dL (6.4-8.2)
[2018-01-14 10:43] LABS: URINE BILIRUBIN NEGATIVE (Negative); URINE BLOOD 2+ (Negative); URINE CLARITY CLEAR; URINE COLOR YELLOW; URINE GLUCOSE-RANDOM* NEGATIVE (Negative); URINE KETONES NEGATIVE (Negative); URINE LEUKOCYTES-REFLEX NEGATIVE (Negative); URINE NITRITE-REFLEX NEGATIVE (Negative); URINE PROTEIN (DIPSTICK) 1+ (Negative); URINE SPECIFIC GRAVITY >= 1.030 (1.005-1.035); URINE UROBILINOGEN 0.2 E.U./dl (0.2-1.0)
[2018-01-14 10:55] LABS: CASTS None Seen /LPF (None Seen); SQUAMOUS 0-3 Few /LPF (0-3)
[2018-01-14 10:56] LABS: BACTERIA-REFLEX 1-9 Few /HPF (None Seen); CRYSTALS None Seen /LPF (None Seen); URINE RBC 0-2 Rare /HPF (0-2); URINE WBC-REFLEX 0-5 Rare /HPF (0-5)
[2018-01-14 11:01] LABS: NUCLEATED RBCS 3 /100WBC
[2018-01-14 11:02] LABS: ANISOCYTOSIS 2+; MACROCYTES 1+; PLATELET ESTIMATE MARKEDLY DECREASED
[2018-01-14 11:04] LABS: WBC 0.2 thou/uL (4.0-11.0)
[2018-01-14 11:05] LABS: PLATELET COUNT 8 thou/uL (150-400)
[2018-01-14 12:41] LABS: BE(vivo) -17.6 mmol/L (-2 to +3); PCO2 23.7 mmHg (35.0-45.0); PO2 382.4 mmHg (80.0-100.0); pH 7.195 (7.360-7.450); sO2 99.7 % (92.0-98.0)
[2018-01-14 15:14] LABS: CALCIUM 7.1 mg/dL (8.5-10.1); CREATININE 1.5 mg/dL (0.6-1.0); POTASSIUM 4.5 mmol/L (3.5-5.1)
[2018-01-14 18:26] LABS: CALCIUM 6.7 mg/dL (8.5-10.1); CREATININE 1.6 mg/dL (0.6-1.0); POTASSIUM 4.3 mmol/L (3.5-5.1)
[2018-01-15] VITALS (50 sets, daily range): BP systolic 69–122; BP diastolic 45–88
[2018-01-15 04:11] LABS: RBC 2.24 mil/uL (4.20-5.00)
[2018-01-15 04:13] LABS: HEMATOCRIT 22.9 % (37.0-47.0); HEMOGLOBIN 7.8 gm/dL (12.0-15.0); MCH 34.9 pg (26.0-34.0); MCHC 34.1 g/dL (28.0-37.0); MCV 102.4 fL (80.0-100.0); RDW 25.6 % (10.5-14.5)
[2018-01-15 04:28] LABS: PLATELET COUNT 4 thou/uL (150-400); WBC 0.3 thou/uL (4.0-11.0)
[2018-01-15 04:32] LABS: ALBUMIN 1.4 g/dL (3.4-5.0); CALCIUM 6.1 mg/dL (8.5-10.1); CREATININE 2.1 mg/dL (0.6-1.0); MAGNESIUM 1.7 mg/dL (1.8-2.4); PHOSPHORUS 3.6 mg/dL (2.5-4.9); POTASSIUM 3.7 mmol/L (3.5-5.1); TOTAL BILIRUBIN 1.4 mg/dL (<0.1-1.0); TOTAL PROTEIN 4.2 g/dL (6.4-8.2)
[2018-01-15 04:57] LABS: NUCLEATED RBCS 3 /100WBC
[2018-01-15 04:58] LABS: LARGE PLATELETS OCCASIONAL; OVALOCYTES 1+
[2018-01-15 04:59] LABS: POLYCHROMASIA OCCASIONAL
[2018-01-15 05:00] LABS: ANISOCYTOSIS 3+
== END 2018-01-15 16:02 | DRG 871 ==
LOC: ER 11:21 → 4N 13:15 → ICU 13:15 → EROBS 13:15 → 4N 16:29 → ICU 01-12 08:33
PROVIDERS: Emergency Medicine; Hospitalist; Internal Medicine; Internal Medicine Cardiovascular Disease; Internal Medicine Hematology & Oncology; Internal Medicine Nephrology; Internal Medicine Pulmonary Disease; Nurse Practitioner Family; Radiology Diagnostic Radiology; Specialist
PROC: 0BH17EZ Insertion of Endotracheal Airway into Trachea, Via Natural or Artificial Opening (ICD-10-PCS; principal; 2018-01-09)
PROC: B24BZZ4 Ultrasonography of Heart with Aorta, Transesophageal (ICD-10-PCS; 2018-01-10)
PROC: 02HV33Z Insertion of Infusion Device into Superior Vena Cava, Percutaneous Approach (ICD-10-PCS; 2018-01-12)
PROC: 07DR3ZX Extraction of Iliac Bone Marrow, Percutaneous Approach, Diagnostic (ICD-10-PCS; 2018-01-13)
PROC: 30243N1 Transfusion of Nonautologous Red Blood Cells into Central Vein, Percutaneous Approach (ICD-10-PCS; 2018-01-13)
PROC: 30243R1 Transfusion of Nonautologous Platelets into Central Vein, Percutaneous Approach (ICD-10-PCS; 2018-01-14)
PROC: 5A1935Z Respiratory Ventilation, Less than 24 Consecutive Hours (ICD-10-PCS; 2018-01-14)
DX: A41.9 Sepsis, unspecified organism (principal); E43 Unspecified severe protein-calorie malnutrition; J96.01 Acute respiratory failure with hypoxia; N17.9 Acute kidney failure, unspecified; D61.818 Other pancytopenia; E87.2 Acidosis; B37.81 Candidal esophagitis; B37.0 Candidal stomatitis; D80.1 Nonfamilial hypogammaglobulinemia; E87.0 Hyperosmolality and hypernatremia; M79.7 Fibromyalgia; M06.9 Rheumatoid arthritis, unspecified; G25.81 Restless legs syndrome; R62.7 Adult failure to thrive; J44.9 Chronic obstructive pulmonary disease, unspecified; K52.9 Noninfective gastroenteritis and colitis, unspecified; I50.9 Heart failure, unspecified; I11.0 Hypertensive heart disease with heart failure; K80.20 Calculus of gallbladder without cholecystitis without obstruction; M19.90 Unspecified osteoarthritis, unspecified site; K12.30 Oral mucositis (ulcerative), unspecified; R65.20 Severe sepsis without septic shock; F17.210 Nicotine dependence, cigarettes, uncomplicated; E87.6 Hypokalemia; T45.1X5A Adverse effect of antineoplastic and immunosuppressive drugs, initial encounter; Y92.89 Other specified places as the place of occurrence of the external cause; Z68.24 Body mass index [BMI] 24.0-24.9, adult; Z79.899 Other long term (current) drug therapy; Z90.49 Acquired absence of other specified parts of digestive tract; Z90.710 Acquired absence of both cervix and uterus; Z71.6 Tobacco abuse counseling; Z28.21 Immunization not carried out because of patient refusal
CPT/HCPCS: 10204; 10790; 27000